=== PATIENT | female | born 1955 ===

== ENCOUNTER 2017-08-02 13:08 | Inpatient (IN) | payer OTHER ==
[2017-08-02] MEDS: SOLU-Medrol 125 MG VIAL IVP SCH ×2 (15:14→21:19)
[2017-08-02] MEDS ORDERED: SOLU-Medrol 40 MG VIAL ONE (15:15)
[2017-08-02 15:16] LABS: BASOPHILS # (AUTO) 0.1 X10^3/uL (0.0-0.1); EOSINOPHILS # (AUTO) 0.1 x10^3/uL (0.0-0.2); EOSINOPHILS % (AUTO) 1.2 % (0.9-2.9); HEMATOCRIT 38.1 % (36.0-47.0); HEMOGLOBIN 13.5 g/dL (12.0-16.0); LYMPHOCYTES # (AUTO) 2.2 X10^3/uL (1.3-2.9); LYMPHOCYTES % (AUTO) 28.4 % (21.0-51.0); MEAN CORPUSCULAR HEMOGLOBIN 31.6 pg (27.0-34.0); MEAN CORPUSCULAR HGB CONC 35.5 g/dL (33.0-35.0); MEAN PLATELET VOLUME 7.3 fL (7.4-11.0); MONOCYTES # (AUTO) 0.6 x10^3/uL (0.3-0.8); MONOCYTES % (AUTO) 7.9 % (0.0-13.0); NEUTROPHILS # (AUTO) 4.7 x10^3/uL (2.2-4.8); NEUTROPHILS % (AUTO) 61.5 % (42.0-75.0); PLATELET COUNT 247 X10^3/uL (150.0-450.0); RED BLOOD COUNT 4.27 X10^6/uL (3.5-5.4); RED CELL DISTRIBUTION WIDTH 12.6 % (11.6-16.5); WHITE BLOOD COUNT 7.7 X10^3/uL (3.6-10.0)
[2017-08-02 15:28] LABS: ALANINE AMINOTRANSFERASE 28 Units/L (12-78); ALBUMIN 3.5 g/dL (3.4-5.0); ALKALINE PHOSPHATASE 36 Units/L (46-116); ASPARTATE AMINO TRANSFERASE 16 Units/L (15-37); BLOOD UREA NITROGEN 16 mg/dL (7-18); CARBON DIOXIDE 31.1 mmol/L (21-32); CHLORIDE 101 mmol/L (98-107); COR NA(FOR HYPERGLY) 145 mmol/L (136-145); CREATININE 1.17 mg/dL (0.55-1.02); MAGNESIUM 1.8 mg/dL (1.7-2.9); SODIUM 141 mmol/L (136-145); TOTAL PROTEIN 6.9 g/dL (6.4-8.2); eGFR BLACK RACES > 60 (>60); eGFR NON BLACK RACES 50 (>60)
[2017-08-02 15:41] LABS: CKMB % 1.7 % (<4); CREATINE KINASE 59 Units/L (26-192); TROPONIN I < 0.02 ng/mL (0-1.5)
[2017-08-02 15:44] VITALS: BMI 29.0
[2017-08-02] MEDS: MORPHINE SULFATE INJ 2 MG INJ IVP PRN ×2 (15:47→20:04)
[2017-08-02] MEDS ORDERED: K-LYTE EFFERVESCENT PO PRN (15:50)
[2017-08-02] MEDS ORDERED: POTASSIUM CHLORIDE LIQ 20 MEQ UDC PO PRN (15:50)
[2017-08-02] MEDS ORDERED: K-RIDER 10 MEQ/NS 100 ML 10 MEQ/100 ML BAG IV PRN (15:50)
[2017-08-02] MEDS ORDERED: MILK OF MAGNESIA PO PRN (15:53)
[2017-08-02] MEDS: K-DUR TAB 20 MEQ PO PRN ×2 (15:59→21:18)
--- NOTE | 2017-08-02 17:36 | RAD ---
HISTORY: Chest pain Study: Single view of the chest. Comparison: None. Findings: The cardiomediastinal silhouette is normal. No focal consolidations, pleural effusions or pneumothora x. Osseous structures demonstrate no acute abnormality. IMPRESSION: 1. No acute cardiopulmonary process. Reported By:
[2017-08-02 19:22] LABS: BILIRUBIN,URINE NEGATIVE (NEGATIVE); BLOOD/HEMOGLOBIN,URINE NEGATIVE (NEGATIVE); GLUCOSE, URINE 3+ (NEGATIVE); KETONES,URINE NEGATIVE (NEGATIVE); LEUKOCYTE ESTERASE ,URINE NEGATIVE (NEGATIVE); NITRITES,URINE NEGATIVE (NEGATIVE); PROTEIN,URINE NEGATIVE (NEGATIVE); UROBILINOGEN,URINE NORMAL (NORMAL)
[2017-08-02 19:34] LABS: APPEARANCE,URINE CLEAR (CLEAR); BACTERIA,URINE TRACE /HPF (NEGATIVE); COLOR,URINE YELLOW (YELLOW); RBC,URINE NONE SEEN /HPF (NEGATIVE); SQUAMOUS EPITHELIAL CELL,UR RARE /HPF (NEGATIVE)
[2017-08-02] MEDS ORDERED: MOTRIN TAB 800 MG PO PRN (19:45)
[2017-08-02 20:13] LABS: CKMB % 1.8 % (<4); CREATINE KINASE 55 Units/L (26-192); CREATINE KINASE MB < 1.0 ng/mL (0-4.0); TROPONIN I < 0.02 ng/mL (0-1.5)
[2017-08-02] MEDS: COLACE CAP 100 MG PO SCH (21:17)
[2017-08-02] MEDS: NEURONTIN CAP 400 MG PO SCH (21:18)
[2017-08-02] MEDS: AMBIEN PO SCH (21:19)
[2017-08-02] MEDS: HumuLIN R SC PRN (21:20)
[2017-08-02] MEDS: SNACK - Diabetic Appropriate PO SCH (21:21)
--- NOTE | 2017-08-02 22:21 | DR.H&P ---
H&P - History & Physical for Day of: H&P Date: 08/02/17 - Chief Complaint Chief Complaint: Chest pain and left leg pain - Allergies Allergies/Adverse Reactions: Allergies Allergy/AdvReac Type Severity Reaction Status Date / Time No Known Drug Allergies Allergy Verified 08/02/17 14:50 - History of Present Illness History of Present Illness: The patient is a 62yo WF who presents to the [facility] with complaint of intermittent chest pain with fatigue and shortness of breath. Patient describes pain as being twinge-like. States has been ongoing and progressive in nature over last couple months. Denies GERD symptoms. Complains of left leg pain with sciatica. Has history of DDD of lumbar spine. States she has been up on leg working more and pain is more severe. States she can not get relief. Has history of PVD with 2 stents to groin region as well as history of angioplasty. States her left foot is staying more purple in color. - Past Medical History Past Medical History: Anxiety, Diabetes, Dyslipidemia, Hypertension, PUD Additional Medical History: Insomnia, Lumbar DDD, PVD - Past Surgical History Surgical History: Hysterectomy, Other Additional Surgical History: Angioplasty and stent placement LLE - Family History Family Medical History: Cancer, Coronary Artery Disease, Hypertension - Social History Does patient currently use any type of tobacco product: No Have you used tobacco products in the last 12 months: No Type of Tobacco Use: None How many years tobacco product used: 30 Does any household member use tobacco: No Alcohol Use: None Drug Use: None - Medications Home Medications: Docusate Sodium [COLACE CAP 100 MG *] 200 mg PO HS 08/02/17 [History Confirmed 08/02/17] Gabapentin [NEURONTIN CAP 400 MG *] 400 mg PO DAILY 08/02/17 [History Confirmed 08/02/17] Gabapentin [NEURONTIN CAP 400 MG *] 800 mg PO HS 08/02/17 [History Confirmed 07/11] Hydrochlorothiazide [HYDROCHLOROTHIAZIDE 25 MG TAB *] 25 mg PO DAILY 08/02/17 [ History Confirmed 08/02/17] Ibuprofen 800 mg PO TID PRN 08/02/17 [History Confirmed 08/02/17] Linaclotide [Linzess] 145 mcg PO DAILY 08/02/17 [History Confirmed 08/02/17] Lisinopril [ZESTRIL *] 10 mg PO DAILY 08/02/17 [History Confirmed 08/02/17] Omeprazole [PRILOSEC 20 MG *] 40 mg PO DAILY 08/02/17 [History Confirmed ] Zolpidem Tartrate [AMBIEN 5 MG *] 5 mg PO HS 08/02/17 [History Confirmed ] - Review of Systems Constitutional: Malaise Eyes: No Symptoms Reported ENT: No Symptoms Reported Respiratory: SOB with Excertion Cardiovascular: Chest Pain Gastrointestinal: No Symptoms Reported Genitourinary: No Symptoms Reported Musculoskeletal: Leg Pain Skin: No Symptoms Reported Neurological: No Symptoms Reported - Physical Exam Vital Signs: Temperature 97.0 F Pulse Rate [Left Brachial] 61 Respiratory Rate 18 Blood Pressure [Left Arm] 127/60 Blood Pressure [Right Arm] 115/58 Blood Pressure [Left Radial 100/56 Artery] Blood Pressure 115/58 O2 Sat by Pulse Oximetry 100 Oriented: Normal Eyes: Normal Ear: Normal Nose: Normal Throat: Normal Respiratory: Clear Throughout Cardiovascular: Normal : Normal Auscultation: Bowel Sounds: Normal Palpation: Normal Tenderness: Normal Skin: Normal Musculoskeletal: Left, Leg, Tender Psychiatric: Normal Mood Description: Calm Affect: Normal Speech Pattern: Clear - Assessment/Plan (1) Chest pain Status: Acute Plan: Serial Cardiac enzymes.EKGs (2) Diabetes mellitus Qualifiers: Diabetes mellitus type: type 2 Status: Chronic Plan: Monitor BS. A1C (3) Hypertension Qualifiers: Hypertension type: essential hypertension Qualified Code(s): I10 - Essential (primary) hypertension Status: Chronic Plan: Monitor BP (4) PVD (peripheral vascular disease) Status: Chronic Plan: OLIVIA (5) Left sided sciatica Status: Acute Plan: MRI Lumbar. Toradol and Solumedrol
[2017-08-02] MEDS: TORADOL 30 MG VIAL IVP SCH (23:20)
[2017-08-03 02:33] LABS: BASOPHILS % (AUTO) 0.3 % (0.2-1.0); HEMATOCRIT 37.8 % (36.0-47.0); HEMOGLOBIN 13.4 g/dL (12.0-16.0); LYMPHOCYTES # (AUTO) 0.8 X10^3/uL (1.3-2.9); LYMPHOCYTES % (AUTO) 10.9 % (21.0-51.0); MEAN CORPUSCULAR HEMOGLOBIN 31.4 pg (27.0-34.0); MEAN CORPUSCULAR HGB CONC 35.3 g/dL (33.0-35.0); MEAN PLATELET VOLUME 7.3 fL (7.4-11.0); MONOCYTES # (AUTO) 0 x10^3/uL (0.3-0.8); MONOCYTES % (AUTO) 0.5 % (0.0-13.0); NEUTROPHILS # (AUTO) 6.7 x10^3/uL (2.2-4.8); NEUTROPHILS % (AUTO) 88.3 % (42.0-75.0); PLATELET COUNT 240 X10^3/uL (150.0-450.0); RED BLOOD COUNT 4.25 X10^6/uL (3.5-5.4); RED CELL DISTRIBUTION WIDTH 12.7 % (11.6-16.5); WHITE BLOOD COUNT 7.6 X10^3/uL (3.6-10.0)
[2017-08-03 02:42] LABS: ALANINE AMINOTRANSFERASE 26 Units/L (12-78); ALBUMIN 3.4 g/dL (3.4-5.0); ALKALINE PHOSPHATASE 36 Units/L (46-116); ASPARTATE AMINO TRANSFERASE 13 Units/L (15-37); BLOOD UREA NITROGEN 20 mg/dL (7-18); CARBON DIOXIDE 29.6 mmol/L (21-32); CHLORIDE 100 mmol/L (98-107); COR NA(FOR HYPERGLY) 141 mmol/L (136-145); CREATININE 1.21 mg/dL (0.55-1.02); SODIUM 138 mmol/L (136-145); TOTAL PROTEIN 6.9 g/dL (6.4-8.2); eGFR BLACK RACES 58 (>60); eGFR NON BLACK RACES 48 (>60)
[2017-08-03] MEDS: MORPHINE SULFATE INJ 2 MG INJ IVP PRN (02:43)
[2017-08-03 02:44] LABS: CHOL/HDL RATIO 4.6 (0.0-5.0)
[2017-08-03 02:54] LABS: CKMB % 2.2 % (<4); CREATINE KINASE 46 Units/L (26-192); CREATINE KINASE MB < 1.0 ng/mL (0-4.0); TROPONIN I < 0.02 ng/mL (0-1.5)
[2017-08-03] MEDS: TORADOL 30 MG VIAL IVP SCH ×2 (05:47→10:59)
[2017-08-03] MEDS: SOLU-Medrol 125 MG VIAL IVP SCH ×3 (05:48→21:10)
--- NOTE | 2017-08-03 05:51 | VAS ---
HISTORY: Peripheral vascular disease, left leg pain Study: Bilateral ankle-brachial indices Comparison: None Findings: The ankle brachial indices measure 0.84 on the right and 0.89 on the left. IMPRESSION: Mild obstructive disease. Reported By:
[2017-08-03] MEDS: HumuLIN R SC PRN ×4 (06:06→21:08)
[2017-08-03] MEDS: AMARYL TAB 4 MG PO SCH ×2 (06:07→17:20)
[2017-08-03] MEDS: LINZESS PO SCH (08:00)
[2017-08-03] MEDS: TENORMIN PO SCH (08:00)
[2017-08-03] MEDS: HYDROCHLOROTHIAZIDE 25 MG TAB PO SCH (08:00)
[2017-08-03] MEDS: PriLOSEC PO SCH (08:00)
[2017-08-03] MEDS: ZESTRIL TAB 10 MG PO SCH (08:00)
[2017-08-03] MEDS: NEURONTIN CAP 400 MG PO SCH ×2 (08:00→21:01)
[2017-08-03] MEDS: COLACE CAP 100 MG PO SCH (20:57)
[2017-08-03] MEDS: AMBIEN PO SCH (21:01)
[2017-08-03] MEDS: SNACK - Diabetic Appropriate PO SCH (21:34)
[2017-08-04] MEDS: SOLU-Medrol 125 MG VIAL IVP SCH (05:50)
[2017-08-04] MEDS: AMARYL TAB 4 MG PO SCH (06:06)
[2017-08-04 06:11] LABS: BASOPHILS % (AUTO) 0.1 % (0.2-1.0); HEMATOCRIT 36.5 % (36.0-47.0); LYMPHOCYTES # (AUTO) 1.2 X10^3/uL (1.3-2.9); LYMPHOCYTES % (AUTO) 5.7 % (21.0-51.0); MEAN CORPUSCULAR HEMOGLOBIN 31.5 pg (27.0-34.0); MEAN CORPUSCULAR HGB CONC 35.6 g/dL (33.0-35.0); MEAN CORPUSCULAR VOLUME 88.4 fL (80.0-100.0); MEAN PLATELET VOLUME 7.4 fL (7.4-11.0); MONOCYTES # (AUTO) 1.2 x10^3/uL (0.3-0.8); MONOCYTES % (AUTO) 5.7 % (0.0-13.0); NEUTROPHILS # (AUTO) 18.6 x10^3/uL (2.2-4.8); NEUTROPHILS % (AUTO) 88.5 % (42.0-75.0); PLATELET COUNT 244 X10^3/uL (150.0-450.0); RED BLOOD COUNT 4.13 X10^6/uL (3.5-5.4); RED CELL DISTRIBUTION WIDTH 12.8 % (11.6-16.5)
[2017-08-04 06:18] LABS: ALANINE AMINOTRANSFERASE 21 Units/L (12-78); ALBUMIN 3.3 g/dL (3.4-5.0); ALKALINE PHOSPHATASE 33 Units/L (46-116); ASPARTATE AMINO TRANSFERASE 7 Units/L (15-37); BLOOD UREA NITROGEN 26 mg/dL (7-18); CALCIUM 9.4 mg/dL (8.5-10.1); CARBON DIOXIDE 30.6 mmol/L (21-32); CHLORIDE 104 mmol/L (98-107); COR NA(FOR HYPERGLY) 144 mmol/L (136-145); CREATININE 0.99 mg/dL (0.55-1.02); SODIUM 142 mmol/L (136-145); TOTAL PROTEIN 6.4 g/dL (6.4-8.2); eGFR BLACK RACES > 60 (>60); eGFR NON BLACK RACES > 60 (>60)
[2017-08-04] MEDS: K-DUR TAB 20 MEQ PO PRN (06:47)
[2017-08-04 07:15] LABS: PLATELET MORPHOLOGY COMMENT NORMAL (NORMAL)
[2017-08-04] MEDS ORDERED: NS 100 ML IV 100 ML IV ONE (09:13)
[2017-08-04] MEDS: TENORMIN PO SCH (10:10)
[2017-08-04] MEDS: HYDROCHLOROTHIAZIDE 25 MG TAB PO SCH (10:10)
[2017-08-04] MEDS: ZESTRIL TAB 10 MG PO SCH (10:10)
[2017-08-04] MEDS: LINZESS PO SCH (10:14)
[2017-08-04] MEDS: PriLOSEC PO SCH (10:15)
[2017-08-04] MEDS: NEURONTIN CAP 400 MG PO SCH (10:15)
[2017-08-04 11:44] VITALS: BP 155/85
[2017-08-04] MEDS: MORPHINE SULFATE INJ 2 MG INJ IVP PRN (13:13)
== END 2017-08-04 13:25 | disposition short-term general hospital (02) | DRG 313 ==
LOC: MED/SURG 13:08 → OBSVTOIN 08-03 12:00
PROVIDERS: ADMIT Internal Medicine; ATTEND Internal Medicine
DX: R07.89 Other chest pain (principal); M79.605 Pain in left leg; R53.1 Weakness; R06.02 Shortness of breath; E78.2 Mixed hyperlipidemia; I10 Essential (primary) hypertension; E11.65 Type 2 diabetes mellitus with hyperglycemia; I73.89 Other specified peripheral vascular diseases; M54.32 Sciatica, left side
CPT/HCPCS: 36415; 71010; 72148; 73706; 80053; 80061; 81001; 82550; 82553; 82947; 83036; 83735; 84132; 84484; 85025; 85610; 93005; 93010; 93923; 94760; A4216; A4222; G0378; J1815; J1885; J2270; J2920; J2930